=== PATIENT | male | born 1995 | race Caucasian/White ===

== ENCOUNTER 2020-12-24 19:04 | Emergency (ER) | payer OTHER ==
[2020-12-24] MEDS ORDERED: DICLOFENAC SODI75 MG PO (20:43)
== END 2020-12-24 21:00 | disposition home or self-care (01) ==
LOC: FER 19:04
DX: S63.501A Unspecified sprain of right wrist, initial encounter (principal); S93.402A Sprain of unspecified ligament of left ankle, initial encounter; M79.641 Pain in right hand; M79.642 Pain in left hand; M25.522 Pain in left elbow; M25.562 Pain in left knee; Z88.0 Allergy status to penicillin; Z79.899 Other long term (current) drug therapy; V49.40XA Driver injured in collision with unspecified motor vehicles in traffic accident, initial encounter; Y92.410 Unspecified street and highway as the place of occurrence of the external cause
CPT/HCPCS: 72100; 73080; 73110; 73610